=== PATIENT | male | born 1965 | race Caucasian/White ===

== ENCOUNTER 2016-05-11 16:43 | Outpatient (CLI) | payer OTHER ==
[~2016-05-11 16:43] MED LIST: ATENOLOL100 MG PO; ATORVASTATIN CA40 MG PO; CARAFATE EQUIVAL1 GM PO; CHLORTHALIDONE25 MG PO; METOCLOPRAMIDE10 MG PO; MIRALAX EQUIVAL17 GM PO; MULTIVITAMIN1 TAB PO; OMEPRAZOLE40 MG PO; OXAYDO5 MG PO; TRAZODONE HCL50 MG PO; VITAMIN B-2100 MG PO
--- NOTE | 2016-05-11 17:46 | DIAGNOSTIC IMAGING REPORT ---
PROCEDURE: XR SHOULDER 2 OR MORE VW-RIGHT INDICATION: IMPINGEMENT SYNDROME TECHNIQUE: Four views. COMPARISON: None. FINDINGS: Osseous structures and joint spaces are normal. IMPRESSION: 1. Normal right shoulder.
== END 2016-05-11 23:00 ==
LOC: XR SRH 16:43
DX: M75.41 Impingement syndrome of right shoulder (principal)